=== PATIENT | female | born 1950 | race Caucasian/White ===

== ENCOUNTER 2021-02-05 20:07 | Emergency (ER) | payer MEDICARE, OTHER ==
[~2021-02-05] VITALS: Ht 162.5 cm; Wt 69.9 kg
[2021-02-05 21:00] LABS: BASO # 0.1 10*3/uL (0.0-0.1); EOS # 0.2 10*3/uL (0.0-0.4); EOS % 3.9 % (1.0-4.0); HEMATOCRIT 35.4 % (37.0-47.0); LYMPH # 2.8 10*3/uL (1.3-4.4); LYMPH % 45.3 % (27.0-41.0); MEAN CELL VOLUME 87.6 fl (81.0-99.0); MEAN CORPUSCULAR HGB 29.5 pg (27.0-31.0); MEAN CORPUSCULAR HGB CONC 33.6 g/dl (33.0-37.0); MONO # 0.4 10*3/uL (0.1-1.0); MONO % 6.1 % (3.0-9.0); NEUT # 2.7 10*3/uL (2.3-7.9); NEUT % 43.5 % (47.0-73.0); PLATELET COUNT AUTOMATED 264 10*3/uL (130-400); RED BLOOD COUNT 4.04 10*6/uL (4.10-5.10); RED CELL DISTRI WIDTH 13.1 % (0-14.5); WHITE BLOOD COUNT 6.2 10*3/uL (4.8-10.8)
[2021-02-05 21:14] LABS: ACT PARTIAL THROMBO TIME 28.2 SECONDS (20.0-32.1)
[2021-02-05 21:17] LABS: ALBUMIN 3.5 gm/dl (3.1-4.5); ALKALINE PHOSPHATASE 66 U/L (45-117); BUN 19 mg/dl (7-24); CHLORIDE 110 mmol/L (98-107); CPK 129 U/L (26-192); POTASSIUM 3.9 mmol/L (3.5-5.1); SGOT/AST 22 IU/L (3-35); SGPT/ALT 23 U/L (12-78); SODIUM 140 mmol/L (136-145); TOTAL PROTEIN 7.6 gm/dL (6.4-8.2)
[2021-02-05 21:19] LABS: CKMB 2.7 ng/ml (0.5-3.6); TROPONIN I < 0.015 ng/ml (<0.045)
[2021-02-05 21:19] LABS: BILIRUBIN Negative (Negative); BLOOD Negative (Negative); CLARITY Clear (Clear); COLOR Yellow (Yellow); GLUCOSE Negative (Negative); KETONE Negative (Negative); LEUKO ESTERASE 1+ (Negative); NITRITE Negative (Negative); SPECIFIC GRAVITY <= 1.005 (1.001-1.030)
[2021-02-05 21:21] LABS: ETHYL ALCOHOL < 3.0 mg/dl (<3)
[2021-02-05 21:31] LABS: BACTERIA TRACE; EPITHELIAL CELLS 0-2; RBC 0-2 rbc/hpf (0-2)
[2021-02-06] MEDS ORDERED: TYLENOL EXTRA500 MG PO (01:20)
== END 2021-02-06 02:16 | disposition home or self-care (01) ==
LOC: ED 20:07
PROVIDERS: Emergency Medicine
DX: G43.B0 Ophthalmoplegic migraine, not intractable (principal); I10 Essential (primary) hypertension

== ENCOUNTER → 2021-04-01 | Outpatient (CLI) | payer MEDICARE, OTHER ==
[~2021-04-01] MED LIST: TYLENOL EXTRA500 MG PO
== END | disposition home or self-care (01) ==
LOC: COVID19 15:18
PROVIDERS: ATTEND Family Medicine
DX: Z11.52 Encounter for screening for COVID-19 (principal)

== ENCOUNTER 2021-04-08 20:55 | Inpatient (IN) | payer MEDICARE, OTHER ==
[~2021-04-08] VITALS: Ht 165.1 cm; Wt 69.4 kg
[2021-04-08 21:05] VITALS: BP 156/108
[2021-04-08] MEDS ORDERED: CRESTOR20 M1 PO (21:06)
[2021-04-08] MEDS ORDERED: DIOVAN320 MG PO (21:07)
[2021-04-08] MEDS ORDERED: MELOXICAM15 MG PO (21:07)
[2021-04-08] MEDS ORDERED: ASPIRIN CHEWABL81 MG PO (21:07)
[2021-04-08] MEDS ORDERED: VITAMIN D350 MC2 PO (21:08)
[2021-04-08 21:41] VITALS: BP 135/91
[2021-04-08 21:48] LABS: BASO % 0.3 % (0.0-1.0); EOS # 0.1 10*3/uL (0.0-0.4); EOS % 1.4 % (1.0-4.0); HEMATOCRIT 32.9 % (37.0-47.0); LYMPH # 2.5 10*3/uL (1.3-4.4); MEAN CELL VOLUME 86.8 fl (81.0-99.0); MEAN CORPUSCULAR HGB 28.8 pg (27.0-31.0); MEAN CORPUSCULAR HGB CONC 33.1 g/dl (33.0-37.0); MEAN PLATELET VOLUME 10.4 fl (9.6-12.3); MONO # 0.5 10*3/uL (0.1-1.0); MONO % 5.7 % (3.0-9.0); NEUT # 5.7 10*3/uL (2.3-7.9); NEUT % 64.4 % (47.0-73.0); PLATELET COUNT AUTOMATED 218 10*3/uL (130-400); RED BLOOD COUNT 3.79 10*6/uL (4.10-5.10); RED CELL DISTRI WIDTH 13.3 % (0-14.5); WHITE BLOOD COUNT 8.8 10*3/uL (4.8-10.8)
[2021-04-08 22:00] VITALS: BP 138/81
[2021-04-08 22:04] LABS: ALBUMIN 3.1 gm/dl (3.1-4.5); ALKALINE PHOSPHATASE 50 U/L (45-117); BUN 21 mg/dl (7-24); CHLORIDE 108 mmol/L (98-107); CREATININE 0.58 mg/dL (0.55-1.02); POTASSIUM 3.5 mmol/L (3.5-5.1); SGOT/AST 19 IU/L (3-35); SGPT/ALT 23 U/L (12-78); SODIUM 137 mmol/L (136-145); TOTAL PROTEIN 6.7 gm/dL (6.4-8.2)
[2021-04-08 22:54] VITALS: BP 105/60
[2021-04-09] VITALS (9 sets, daily range): BP systolic 98–125; BP diastolic 40–77
[2021-04-09 03:13] LABS: BASO % 0.6 % (0.0-1.0); EOS # 0.1 10*3/uL (0.0-0.4); HEMATOCRIT 32.2 % (37.0-47.0); LYMPH # 2.3 10*3/uL (1.3-4.4); LYMPH % 33.2 % (27.0-41.0); MEAN CELL VOLUME 85.6 fl (81.0-99.0); MEAN CORPUSCULAR HGB 28.7 pg (27.0-31.0); MEAN CORPUSCULAR HGB CONC 33.5 g/dl (33.0-37.0); MEAN PLATELET VOLUME 10.1 fl (9.6-12.3); MONO # 0.4 10*3/uL (0.1-1.0); MONO % 5.6 % (3.0-9.0); NEUT # 4.1 10*3/uL (2.3-7.9); NEUT % 58.5 % (47.0-73.0); PLATELET COUNT AUTOMATED 207 10*3/uL (130-400); RED BLOOD COUNT 3.76 10*6/uL (4.10-5.10); RED CELL DISTRI WIDTH 13.2 % (0-14.5)
[2021-04-09 03:25] LABS: ACT PARTIAL THROMBO TIME 38.6 SECONDS (20.0-32.1); INTERNATIONAL NORM RATIO 1.2 (2.0-3.5)
[2021-04-09 03:29] LABS: ALBUMIN 2.8 gm/dl (3.1-4.5); ALKALINE PHOSPHATASE 50 U/L (45-117); BUN 17 mg/dl (7-24); CHLORIDE 113 mmol/L (98-107); CHOLESTEROL 97 mg/dL (<200); LDL CHOLESTEROL 20 mg/dL (9-159); POTASSIUM 3.6 mmol/L (3.5-5.1); SGOT/AST 15 IU/L (3-35); SGPT/ALT 24 U/L (12-78); SODIUM 144 mmol/L (136-145); TOTAL PROTEIN 6.1 gm/dL (6.4-8.2); TRIGLYCERIDES 67 mg/dl (<150)
[2021-04-09 03:30] LABS: FREE T4 0.97 ng/dl (0.76-1.46)
[2021-04-10] VITALS: BP 94/47
[2021-04-10 08:00] VITALS: BP 100/74
[2021-04-10 12:00] VITALS: BP 122/58
[2021-04-10 16:00] VITALS: BP 137/57
[2021-04-10 20:00] VITALS: BP 116/58
[2021-04-11] VITALS: BP 104/51
[2021-04-11 08:00] VITALS: BP 121/60
[2021-04-11 12:00] VITALS: BP 108/45
[2021-04-11] MEDS ORDERED: XARE20MG PO (14:45)
[2021-04-11] MEDS ORDERED: METOPROLOL SUCC50 M1 PO (14:45)
== END 2021-04-11 16:00 | disposition home or self-care (01) | DRG 310 ==
LOC: ED 20:55 → EDHOLD 22:34 → 5E 22:34
PROVIDERS: Internal Medicine; Nurse Practitioner Family; ADMIT Emergency Medicine; ATTEND Emergency Medicine
DX: I48.91 Unspecified atrial fibrillation (principal); I16.0 Hypertensive urgency; D64.9 Anemia, unspecified; E87.8 Other disorders of electrolyte and fluid balance, not elsewhere classified; R73.9 Hyperglycemia, unspecified; I10 Essential (primary) hypertension; K21.9 Gastro-esophageal reflux disease without esophagitis; E78.5 Hyperlipidemia, unspecified; Z90.79 Acquired absence of other genital organ(s); Z90.49 Acquired absence of other specified parts of digestive tract; Z87.891 Personal history of nicotine dependence; Z86.73 Personal history of transient ischemic attack (TIA), and cerebral infarction without residual deficits

== ENCOUNTER 2024-09-21 17:44 | Emergency (ER) | payer MEDICARE, OTHER ==
[~2024-09-21] VITALS: Ht 162.5 cm; Wt 76.7 kg
[~2024-09-21 17:44] MED LIST changes: +ASPIRIN CHEWABL81 MG PO; +ATORVASTATIN CA40 M1 PO; +CRESTOR20 M1 PO; +DIOVAN320 MG PO; +ESTRADIOL42.5 GM V; +LOSARTAN POTASS25 M1 PO; +MACROBID100 M1 PO; +MELOXICAM15 MG PO; +METOPROLOL SUCC25 M2 PO; +METOPROLOL SUCC50 M1 PO; +PANTOPRAZOLE SO40 MG PO; +VITAMIN D350 MC2 PO; +XARE20MG PO
[2024-09-21 18:27] LABS: BASO # 0.0 10*3/uL (0.0-0.1); BASO % 0.6 % (0.0-1.0); EOS # 0.0 10*3/uL (0.0-0.4); EOS % 0.3 % (1.0-4.0); MEAN CELL VOLUME 87.7 fl (81.0-99.0); MEAN CORPUSCULAR HGB 29.2 pg (27.0-31.0); MEAN PLATELET VOLUME 9.2 fl (9.6-12.3); MONO # 0.4 10*3/uL (0.1-1.0); MONO % 5.9 % (3.0-9.0); NEUT # 4.6 10*3/uL (2.3-7.9); NEUT % 72.8 % (47.0-73.0); NUCLEATED RED BLOOD CELL 0.0 % (0.0-0.0); NUCLEATED RED BLOOD CELL 0.0 10*3/uL (0.0-0.0); PLATELET COUNT AUTOMATED 253 10*3/uL (130-400); RED CELL DISTRI WIDTH 13.4 % (0-14.5)
[2024-09-21 18:27] LABS: BILIRUBIN Negative (Negative); BLOOD Negative (Negative); CLARITY Clear (Clear); COLOR Yellow (Yellow); KETONE Negative (Negative); LEUKO ESTERASE Trace (Negative); NITRITE Negative (Negative); PH 5.5 (4.5-8.0); SPECIFIC GRAVITY 1.010 (1.001-1.030); UROBILINOGEN 1.0 E.U./dl (0.0-1.0)
[2024-09-21 18:34] LABS: BACTERIA 1+; EPITHELIAL CELLS 21-30; WBC 16-20 wbc/hpf (0-5)
[2024-09-21 18:48] LABS: BUN 20 mg/dl (9-23); SGPT/ALT 43 U/L (5-49)
[2024-09-21] MEDS ORDERED: CIPRO500 MG PO (19:00)
[2024-09-21] MEDS ORDERED: Ciprofloxacin Hydrochloride 500 MG TAB PO ONE (19:05)
== END 2024-09-21 19:05 | disposition home or self-care (01) ==
LOC: ED 17:44
PROVIDERS: Internal Medicine
DX: N39.0 Urinary tract infection, site not specified (principal); Z79.899 Other long term (current) drug therapy; Z79.82 Long term (current) use of aspirin; Z90.49 Acquired absence of other specified parts of digestive tract; Z87.891 Personal history of nicotine dependence